=== PATIENT | male | born 1950 | race Caucasian/White ===

== ENCOUNTER 2018-12-23 09:20 | Emergency (ER) | payer MEDICARE, MEDICAID ==
[~2018-12-23] VITALS: Ht 188 cm; Wt 79.5 kg
[~2018-12-23 09:20] MED LIST: ALBU8.5H8 INH; CA C1TAB69 PO; CETI10TA18 PO; ENOX40SY7 SQ; FISH12002 PO; LISI-600 PO; MELA1TAB9 PO; PER10325T PO; ROPI2TAB29 PO; SENN-129 PO; UBID100C16 PO; VITC500T PO
[2018-12-23 09:25] VITALS: BP 154/69
[2018-12-23] MEDS ORDERED: PRED20TA PO (09:54)
[2018-12-23] MEDS ORDERED: predniSONE 20 mg tablet PO ONE (09:55)
[2018-12-23] MEDS ORDERED: HYDROcodone/acetaminophen 5mg/325mg tablet PO ONE (09:55)
== END 2018-12-23 10:06 | disposition home or self-care (01) ==
LOC: ER 09:21
DX: G89.29 Other chronic pain (principal); M54.5 Low back pain; J45.909 Unspecified asthma, uncomplicated; I12.9 Hypertensive chronic kidney disease with stage 1 through stage 4 chronic kidney disease, or unspecified chronic kidney disease; N18.9 Chronic kidney disease, unspecified; M19.90 Unspecified osteoarthritis, unspecified site; Z98.890 Other specified postprocedural states; Z88.8 Allergy status to other drugs, medicaments and biological substances; Z79.899 Other long term (current) drug therapy
CPT/HCPCS: 99283; J7512

== ENCOUNTER 2023-09-09 12:50 | Outpatient (CLI) | payer MEDICARE, MEDICAID ==
[~2023-09-09 12:50] MED LIST changes: +ACET-1 PO; +ACET-812 PO; +ALBU8.5H17 INH; -ALBU8.5H8 INH; -CA C1TAB69 PO; -CETI10TA18 PO; +CHOL10008 PO; +COLC0.6T72 PO; -ENOX40SY7 SQ; -LISI-600 PO; +LISI20TA28 PO; -MELA1TAB9 PO; -PER10325T PO; -ROPI2TAB29 PO; -SENN-129 PO
== END 2023-09-09 23:59 | disposition home or self-care (01) ==
LOC: RAD 12:50
PROVIDERS: ATTEND Podiatrist Foot & Ankle Surgery
DX: M19.071 Primary osteoarthritis, right ankle and foot (principal); M20.21 Hallux rigidus, right foot; M25.374 Other instability, right foot; M25.571 Pain in right ankle and joints of right foot; M79.671 Pain in right foot
CPT/HCPCS: 73700